=== PATIENT | female | born 1990 | race African-American/Black ===

== ENCOUNTER 2024-10-29 06:56 | Emergency (ER) | payer SELFPAY ==
[~2024-10-29] VITALS: Ht 157.5 cm; Wt 56.7 kg
[2024-10-29 08:06] LABS: PREGNANCY TEST URINE QUAL NEGATIVE (NEGATIVE)
[2024-10-29] MEDS ORDERED: OXYC-133 PO (08:14)
[2024-10-29] MEDS ORDERED: DEXA0.5T15 PO (08:14)
[2024-10-29] MEDS ORDERED: KETO10TA2 PO (08:14)
[2024-10-29] MEDS ORDERED: KETOROLAC TROMETHAMINE INJ 30 MG/ML VIAL ONE (08:25)
[2024-10-29] MEDS ORDERED: ACETAMINOPHEN ES 500 MG TABLET ONE (08:26)
[2024-10-29] MEDS: KETOROLAC TROMETHAMINE INJ 30 MG/ML VIAL IM ONE (08:30)
[2024-10-29] MEDS: ACETAMINOPHEN 325 MG TABLET PO ONE (08:30)
[2024-10-29 08:44] VITALS: BP 120/64; TEMP 98; O2SAT 99
== END 2024-10-29 08:44 | disposition home or self-care (01) ==
LOC: EDBD 07:01 → ER 07:01
DX: M54.50 Low back pain, unspecified (principal); G89.29 Other chronic pain; M79.7 Fibromyalgia; Z76.0 Encounter for issue of repeat prescription; Z79.52 Long term (current) use of systemic steroids; Z88.5 Allergy status to narcotic agent; Z88.6 Allergy status to analgesic agent; Z87.39 Personal history of other diseases of the musculoskeletal system and connective tissue; Z60.2 Problems related to living alone
CPT/HCPCS: 99283; 96372; 84703; J1885